=== PATIENT | female | born 1960 | race African-American/Black ===

== ENCOUNTER → 2018-03-11 | Outpatient (CLI) | payer OTHER ==
[2014-11-11 11:17] VITALS: BP 97/66
[~2018-03-11] MED LIST: LISI40TA PO; PANT40TA3 PO; PRED5TAB PO; SUCR1TAB35 PO
[2018-03-11 10:54] LABS: BASO % 1 % (0-3); EOS # 0.1 x10^3/uL (0.0-0.7); EOS % 2 % (0-3); HEMATOCRIT 37.2 % (36.0-47.0); HEMOGLOBIN 12.6 g/dL (12.0-15.5); LYMPH # 1.2 x10^3/uL (1.0-4.8); LYMPH % 27 % (24-48); MEAN CORPUSCULAR HEMOGLOBIN 30 pg (25-35); MEAN CORPUSCULAR HGB CONC 34 g/dL (31-37); MEAN CORPUSCULAR VOLUME 88 fL (79-100); MONO # 0.5 x10^3/uL (0.0-1.1); MONO % 11 % (0-9); NEUT # 2.8 x10^3uL (1.8-7.7); NEUT % 60 % (31-73); PLATELET COUNT 276 x10^3/uL (140-400); RED BLOOD COUNT 4.23 x10^6/uL (3.50-5.40); RED CELL DISTRIBUTION WIDTH 12.9 % (11.5-14.5); WHITE BLOOD COUNT 4.6 x10^3/uL (4.0-11.0)
[2018-03-11 11:00] LABS: ALBUMIN 3.8 g/dL (3.4-5.0); ALBUMIN/GLOBULIN RATIO 0.9 (1.0-1.7); CALCIUM 9.7 mg/dL (8.5-10.1); CREATININE 0.9 mg/dL (0.6-1.0); GFR 77.8; POTASSIUM 3.7 mmol/L (3.5-5.1); TOTAL BILIRUBIN 0.4 mg/dL (0.2-1.0)
== END | disposition home or self-care (01) ==
LOC: LAB 10:30
PROVIDERS: ATTEND General Practice
DX: E55.9 Vitamin D deficiency, unspecified (principal); L98.9 Disorder of the skin and subcutaneous tissue, unspecified
CPT/HCPCS: 36415; 80053; 85025

== ENCOUNTER 2018-10-08 07:11 | Emergency (ER) | payer OTHER ==
[~2018-10-08] VITALS: Ht 165.1 cm; Wt 59.5 kg
[2018-10-08] MEDS ORDERED: ASPIRIN 81 MG TAB.CHEW PO ONE (07:30)
[2018-10-08] MEDS ORDERED: ASPIRIN 81 MG TAB.CHEW ONE (07:30)
[2018-10-08] MEDS ORDERED: METOPROLOL TARTRATE 5 MG/5 ML VIAL. IV ONE (07:30)
--- NOTE | 2018-10-08 07:51 | RAD ---
CHEST AP ONLY Clinical indications: CHEST PAIN COMPARISON: October,. Findings: No acute lung infiltrate or pleural effusion or pulmonary edema or lung mass or pneumothorax is seen. The heart size, pulmonary vasculature, mediastinum and both fabby are unremarkable. Impression: No acute radiographic abnormality is seen. Electronically signed by: Alfred Buckley MD (10/08/2018 7:49 AM) [facility]
[2018-10-08 07:53] LABS: BASO % 1 % (0-3); EOS # 0.1 x10^3/uL (0.0-0.7); EOS % 4 % (0-3); HEMOGLOBIN 13.2 g/dL (12.0-15.5); LYMPH # 1.3 x10^3/uL (1.0-4.8); LYMPH % 43 % (24-48); MEAN CORPUSCULAR HEMOGLOBIN 30 pg (25-35); MEAN CORPUSCULAR HGB CONC 34 g/dL (31-37); MEAN CORPUSCULAR VOLUME 89 fL (79-100); MONO # 0.4 x10^3/uL (0.0-1.1); MONO % 13 % (0-9); NEUT # 1.2 x10^3uL (1.8-7.7); NEUT % 39 % (31-73); PLATELET COUNT 273 x10^3/uL (140-400); RED BLOOD COUNT 4.39 x10^6/uL (3.50-5.40); RED CELL DISTRIBUTION WIDTH 13.2 % (11.5-14.5); WHITE BLOOD COUNT 3.1 x10^3/uL (4.0-11.0)
[2018-10-08 08:15] LABS: ALBUMIN 3.8 g/dL (3.4-5.0); ALBUMIN/GLOBULIN RATIO 0.9 (1.0-1.7); CALCIUM 9.4 mg/dL (8.5-10.1); CREATININE 0.9 mg/dL (0.6-1.0); GFR 77.8; POTASSIUM 3.8 mmol/L (3.5-5.1); TOTAL BILIRUBIN 0.4 mg/dL (0.2-1.0); TOTAL PROTEIN 7.9 g/dL (6.4-8.2)
--- NOTE | 2018-10-08 08:47 | PHYS DOC ---
Past History Past Medical History: Hypertension Past Surgical History: No Surgical History Alcohol Use: None Drug Use: None Adult General Chief Complaint Chief Complaint: CHEST PAIN HPI HPI 57-year-old female with no history of coronary disease presents with some chest discomfort that's been off and on for the last week. She states this morning it was quite a bit worse. She states the pain that she described as a pressure her up she had some associated nausea and sweating. On arrival here she still had some discomfort in her chest but was not nauseated or diaphoretic. She has not had these symptoms prior to around a week ago. She denies any cough or congestion. She has not had any fever or chills. She denies hemoptysis. She denies any significant lower extremity swelling. She also mentioned that she became very concerned this morning when her apple watch noticed that her heart rate was 120 and they commented that it was A. fib. She has no history of atrial fibrillation.[] Review of Systems Review of Systems Constitutional: Denies fever or chills [] Eyes: Denies change in visual acuity, redness, or eye pain [] HENT: Denies nasal congestion or sore throat [] Respiratory: Denies cough or shortness of breath [] Cardiovascular: No additional information not addressed in HPI [] GI: Denies abdominal pain, nausea, vomiting, bloody stools or diarrhea [] : Denies dysuria or hematuria [] Musculoskeletal: Denies back pain or joint pain [] Integument: Denies rash or skin lesions [] Neurologic: Denies headache, focal weakness or sensory changes [] Endocrine: Denies polyuria or polydipsia [] All other systems were reviewed and found to be within normal limits, except as documented in this note. Current Medications Current Medications Current Medications Medications (Trade) Dose Ordered Sig/Teddy Start Time Stop Time Status Last Admin Dose Admin Aspirin (Children'S Aspirin) 324 mg 1X ONCE 10/08/18 07:30 10/08/18 07:42 DC 10/08/18 07:32 324 MG Metoprolol Tartrate (Lopressor Vial) 5 mg 1X ONCE 10/08/18 07:30 10/08/18 07:42 DC 10/08/18 07:49 5 MG Allergies Allergies Allergies Coded Allergies Type Severity Reaction Last Updated Verified No Known Drug Allergies 11/08/14 No Physical Exam Physical Exam Constitutional: Well developed, well nourished, no acute distress, non-toxic appearance. [] HENT: Normocephalic, atraumatic, bilateral external ears normal, oropharynx moist, no oral exudates, nose normal. [] Eyes: PERRLA, EOMI, conjunctiva normal, no discharge. [] Neck: Normal range of motion, no tenderness, supple, no stridor. [] Cardiovascular:Heart rate regular rhythm, no murmur [] Lungs & Thorax: Bilateral breath sounds clear to auscultation [] Abdomen: Bowel sounds normal, soft, no tenderness, no masses, no pulsatile masses. [] Skin: Warm, dry, no erythema, no rash. [] Back: No tenderness, no CVA tenderness. [] Extremities: No tenderness, no cyanosis, no clubbing, ROM intact, no edema. [] Neurologic: Alert and oriented X 3, normal motor function, normal sensory function, no focal deficits noted. [] Psychologic: Very anxious[] Current Patient Data Vital Signs Vital Signs Date Time Temp Pulse Resp B/P (MAP) Pulse Ox O2 Delivery O2 Flow Rate FiO2 10/08/18 07:49 87 157/105 Lab Results Laboratory Tests Test 10/08/18 07:43 White Blood Count 3.1 x10^3/uL (4.0-11.0) L Red Blood Count 4.39 x10^6/uL (3.50-5.40) Hemoglobin 13.2 g/dL (12.0-15.5) Hematocrit 39.0 % (36.0-47.0) Mean Corpuscular Volume 89 fL (79-100) Mean Corpuscular Hemoglobin 30 pg (25-35) Mean Corpuscular Hemoglobin Concent 34 g/dL (31-37) Red Cell Distribution Width 13.2 % (11.5-14.5) Platelet Count 273 x10^3/uL (140-400) Neutrophils (%) (Auto) 39 % (31-73) Lymphocytes (%) (Auto) 43 % (24-48) Monocytes (%) (Auto) 13 % (0-9) H Eosinophils (%) (Auto) 4 % (0-3) H Basophils (%) (Auto) 1 % (0-3) Neutrophils # (Auto) 1.2 x10^3uL (1.8-7.7) L Lymphocytes # (Auto) 1.3 x10^3/uL (1.0-4.8) Monocytes # (Auto) 0.4 x10^3/uL (0.0-1.1) Eosinophils # (Auto) 0.1 x10^3/uL (0.0-0.7) Basophils # (Auto) 0.0 x10^3/uL (0.0-0.2) Sodium Level 143 mmol/L (136-145) Potassium Level 3.8 mmol/L (3.5-5.1) Chloride Level 106 mmol/L (98-107) Carbon Dioxide Level 29 mmol/L (21-32) Anion Gap 8 (6-14) Blood Urea Nitrogen 13 mg/dL (7-20) Creatinine 0.9 mg/dL (0.6-1.0) Estimated GFR (Cockcroft-Gault) 77.8 BUN/Creatinine Ratio 14 (6-20) Glucose Level 108 mg/dL (70-99) H Calcium Level 9.4 mg/dL (8.5-10.1) Total Bilirubin 0.4 mg/dL (0.2-1.0) Aspartate Amino Transferase (AST) 23 U/L (15-37) Alanine Aminotransferase (ALT) 22 U/L (14-59) Alkaline Phosphatase 83 U/L (46-116) Troponin I Quantitative < 0.017 ng/mL (0-0.055) RV-Wzg-F-Type Natriuretic Peptide 24 pg/mL (0-124) Total Protein 7.9 g/dL (6.4-8.2) Albumin 3.8 g/dL (3.4-5.0) Albumin/Globulin Ratio 0.9 (1.0-1.7) L EKG EKG EKG: Sinus rhythm rate of [address]-T changes[] Radiology/Procedures Radiology/Procedures [] Impressions: REASON: Chest Pain PROCEDURE: CHEST AP ONLY CHEST AP ONLY Clinical indications: CHEST PAIN COMPARISON: October,. Findings: No acute lung infiltrate or pleural effusion or pulmonary edema or lung mass or pneumothorax is seen. The heart size, pulmonary vasculature, mediastinum and both fabby are unremarkable. Impression: No acute radiographic abnormality is seen. Course & Med Decision Making Course & Med Decision Making Pertinent Labs and Imaging studies reviewed. (See chart for details) [ED course: They which reveals a 57-year-old female with concerning symptoms for coronary event. Her initial workup was unremarkable. She was given an aspirin and 5 mg of metoprolol IV which did completely alleviate her symptoms. Given her risk factors and her elevated heart score I believe that it's in the patient's best interest to be admitted for observation and risk stratification. [facility] choice.] Dragon Disclaimer Dragon Disclaimer This electronic medical record was generated, in whole or in part, using a voice recognition dictation system. Departure Departure: Impression: Primary Impression: Chest pain Additional Impression: Paroxysmal sinus tachycardia Disposition: 05 TRANSFER OTHER (Dr. Johnson is the accepting physician at [facility]) Condition: GUARDED Referrals: LUZ MARINA ROBERTSON DO (PCP) Problem Qualifiers Primary Impression: Chest pain Chest pain type: unspecified Qualified Codes: R07.9 - Chest pain, unspecified DIDIER FERRER DO Oct 08, 2018 08:47
[2018-10-08 10:13] VITALS: BP 130/84
--- NOTE | 2018-10-09 21:41 | EKG ---
[address] [address] Test Date: 2018-10-08 Test Time: 07:30:14 Pat Name: ANAMARIA LOUIS Department: Room: Gender: F Sales And Marketing Professional: DAVE : 1960 Requested By: DIDIER FERRER Order Number: [id number] Reading MD: Jad Breaux MD Measurements Intervals [place] Rate: 91 P: 36 TX: 128 QRS: 57 QRSD: 82 T: 38 QT: 356 QTc: 440 Interpretive Statements SINUS RHYTHM Electronically Signed On 10-13-2018 7:48:40 CANAL STRUCTURE OPERATOR by Jad Breaux MD
== END 2018-10-08 10:43 | disposition short-term general hospital (02) ==
LOC: ER 07:11
DX: R07.89 Other chest pain (principal); I47.1 Supraventricular tachycardia; I10 Essential (primary) hypertension
CPT/HCPCS: 36415; 71045; 80053; 83880; 84484; 85025; 85379; 93005; 96374; 99285; J3490

== ENCOUNTER → 2018-10-22 | Outpatient (CLI) | payer OTHER ==
[2018-10-08 10:13] VITALS: BP 130/84
[~2018-10-22] MED LIST changes: +REGADENOSON 0.4 MG/5 ML DISP.SYRIN. IV ONE
--- NOTE | 2018-10-22 13:09 | RAD ---
MR#: [id number] Date of Study: 10/22/2018 Ordering Physician: REGINALDO GARG, Referring Physician: MICHEL REESE Tech: RT Rissa (R) (N) APPROVED REPORT Test Type: Pharmacological Stress Nurse/Tech: Raghavendra Test Indications: Chest pain Cardiac History: No known cardiac Resting Heart Rate: 71 bpm Resting Blood Pressure: 137/85mmHg Pretest Chest Pain: None Pharm. Details Pharmacologic stress testing was performed using 0.4mg per 5ml of regadenoson given intravenously ove r 7-10 seconds. Stress Symptoms Dyspnea, headach POST EXERCISE Reason for Termination: Infusion complete Max HR: 119 bpm Max Blood Pressure: 142/86mmHg Blood Pressure response to exercise: Normal blood pressure response during stress. Heart Rate response to exercise: Normal Chest Pain: No. Arrhythmia: No. ST Change: No. INTERPRETATION Stress EKG Conclusion: Baseline EKG showed sinus rhythm. No ischemic changes at peak stress. No arr hythmias. Imaging Protocol IMAGE PROTOCOL: Rest Tc-99m/stress Tc-99m 1 day Rest: Stress: Viability: Radiopharm.Tc99m [id number] Sestamibi Wciq39sEl 33mCi Duration 20min. 15min. Img Date 10/22/2018 10/22/2018 Inj-Img Cdup21pfd. 60min. Rest Admin Site:IV - Left HandAdministrator: RT Rissa (R)(N) Stress Admin Site: IV - Left HandAdministrator: RT Rissa (R)(N) STRESS DATA End Diast. Vol.92.0mlAv. Heart Rate90.0bpm LVEDV index BSA2.0mlCardiac Output0.1L/min End Syst. Vol.29.0mlCO Index BSA5.6L/min LVESV index BSA1.0mlMyocardial Gija422.0g Eject. Efdsgfxv61.0% Stress Rates Pk. Fill Rate3.88EDV/secLVtime Pk. Fill 174.08msec Pk. Empty Rate4.49ESV/secLVtime Pk. Kjmht193.30msec 1/3 Pk. Fill0.75EDV/sec Stress Scores Regional WT0.00Summed WT0.00 Regional WM0.00Summed WM0.00 LV Perfusion Scintigraphic images showed predominantly fixed defect involving the anterior wall most probably irish st attenuation artifact based on normal wall motion. No other fixed or reversible defects seen. Wall Motion Normal left ventricle systolic function with ejection fraction calculated at 68%. LV Perf. Quant 17 Seg. SSS3.00 17 Seg. SRS2.00 17 Seg. SDS2.00 Stress Defect Extent (% LAD)3.80Rest Defect Extent (% LAD)6.90Rev. Defect Extent (% LAD)0.00 Stress Defect Extent (% LCX) 15.00Rest Defect Extent (% LCX)16.30Rev. Defect Extent (% LCX)2.50 Stress Defect Extent (% RCA)0.00Rest Defect Extent (% RCA)0.00Rev. Defect Extent (% RCA)0.00 Stress Defect Extent (% YANETH)4.30Rest Defect Extent (% YANETH)5.20Rev. Defect Extent (% YANETH)0.90 Conclusion 1. Regadenoson cardioisotope stress test showed breast attenuation artifact without any evidence of i schemia or infarct. 2. Normal left ventricular systolic function with ejection fraction calculated at 68%. 3. Low risk for cardiac events. Signed by : Mark Lagos, Electronically Approved : 10/22/2018 13:09:17
== END | disposition home or self-care (01) ==
LOC: NM 08:01
PROVIDERS: ATTEND Internal Medicine Cardiovascular Disease
DX: R07.9 Chest pain, unspecified (principal); R51 Headache; R06.00 Dyspnea, unspecified
CPT/HCPCS: 78452; 93017; 96374; 96375; 96376; A9500; J2785

== ENCOUNTER → 2019-05-31 | Outpatient (CLI) | payer OTHER ==
[~2019-05-31] MED LIST changes: -REGADENOSON 0.4 MG/5 ML DISP.SYRIN. IV ONE
--- NOTE | 2019-05-31 12:54 | RAD ---
EXAM: Left hand, 3 views. HISTORY: Pain. FINDINGS: 3 views of the left hand are obtained. There is no fracture, dislocation or subluxation. IMPRESSION: No acute osseous finding. Electronically signed by: Angelina Johnson MD (05/31/2019 12:51 PM) [place] [id number]
== END | disposition home or self-care (01) ==
LOC: RAD 12:15
PROVIDERS: ATTEND General Practice
DX: M79.89 Other specified soft tissue disorders (principal)
CPT/HCPCS: 73130